=== PATIENT | male | born 1990 | race Caucasian/White ===

== ENCOUNTER 2019-01-31 22:44 | Emergency (ER) | payer BC ==
--- NOTE | 2019-01-31 23:01 | ER Document Report ---
ED Medical Screen (RME) - General Chief Complaint: Ankle Swelling Stated Complaint: LEFT FOOT INJURY Time Seen by Provider: 01/31/19 22:55 Mode of Arrival: Wheelchair Information source: Patient Notes: 28-year-old male presents emergency department with left foot and ankle swelling. Reports he twisted on Tuesday playing soccer. He reports last night at approximately 02 100 he was fixing his chicken coop when he felt something bite or sting his left medial ankle. Since that time the area is red and the foot has swollen up more. He reports he has seen black windows around his area. Denies fever vomiting diarrhea. Unsure of last tetanus. Left foot and ankle swollen foot is warm with erythema I have greeted and performed a rapid initial assessment of this patient. A comprehensive ED assessment and evaluation of the patient, analysis of test results and completion of the medical decision making process will be conducted by additional ED providers. Dictation of this chart was performed using voice recognition software; therefore, there may be some unintended grammatical errors. TRAVEL OUTSIDE OF THE [place] IN LAST 30 DAYS: No - Related Data Allergies/Adverse Reactions: Sulfa (Sulfonamide Antibiotics) Allergy (Verified 01/31/19 22:57) Physical Exam - Vital signs Vitals: Temp Pulse Resp BP Pulse Ox 98.6 F 91 17 142/80 H 97 01/31/19 22:56 01/31/19 22:56 01/31/19 22:56 01/31/19 22:56 01/31/19 22:56 Course - Vital Signs Vital signs: Temp Pulse Resp BP Pulse Ox 98.6 F 91 17 142/80 H 97 01/31/19 22:56 01/31/19 22:56 01/31/19 22:56 01/31/19 22:56 01/31/19 22:56
--- NOTE | 2019-01-31 23:50 | RADIOLOGY REPORT (SQ) ---
3 VIEWS OF LEFT FOOT AND ANKLE EXAM DATE: 01/31/2019 10:59 PM CDT HISTORY: Soccer injury. COMPARISON: None. FINDINGS: The ankle mortise is preserved on these nonstress views. No acute fracture is seen. There is diffuse surrounding soft tissue swelling. No radiopaque foreign body is identified. IMPRESSION: No acute fracture or malalignment. Diffuse soft tissue swelling of the left foot and ankle.
[2019-02-01] MEDS ORDERED: MORPHINE SULFATE 10 MG/ML INJ IV ONE (00:47)
[2019-02-01] MEDS ORDERED: RINGERS SOLUTION,LACTATED 1,000 ML IV ONE (00:47)
--- NOTE | 2019-02-01 00:57 | ER Document Report ---
ED General - General Chief Complaint: Ankle Swelling Stated Complaint: LEFT FOOT INJURY Time Seen by Provider: 01/31/19 22:55 Primary Care Provider: CHARISSE LIN MD [Primary Care Provider] - Follow up as needed Mode of Arrival: Wheelchair TRAVEL OUTSIDE OF THE [place] IN LAST 30 DAYS: No - HPI Notes: 28-year-old male with no pertinent history presents with left lower extremity pain swelling and redness. Patient states that on a couple of days ago he was playing in an adult soccer league when he twisted his ankle and developed some pain in his lateral malleolus and his left posterior lateral forefoot. However, sometime around 3 or 4 in the morning, he was out in his yard in his chicken coop inspecting his chickens. He states at that time, he had been bitten by several mosquitoes in both legs but then felt a sudden sharp pain in his left medial malleolus area. He states he had seen several black widows in the area but did not see anything that bit him. He did not see a snake. He thought he saw two "white spots" but those disappeared. He was fine until around 11 AM, possibly 12 PM when he began to develop swelling pain and redness in his left medial malleolus area. This is now spread and he has some mild calf redness and pain and swelling extending from this area. No fever, chills or sweats. No nausea or vomiting. Moderate intensity, gradual onset, nonradiating. No other modifying factors, no other associated symptoms, no other provocative or palliative factors. - Related Data Allergies/Adverse Reactions: Sulfa (Sulfonamide Antibiotics) Allergy (Verified 01/31/19 22:57) Past Medical History - General Information source: Patient - Social History Smoking Status: Never Smoker Family History: Reviewed & Not Pertinent Patient has suicidal ideation: No Patient has homicidal ideation: No - Medical History Medical History: Negative Review of Systems - Review of Systems Notes: Review of systems as in the history of present illness, otherwise negative x 10 systems. Physical Exam - Vital signs Vitals: Temp Pulse Resp BP Pulse Ox 98.6 F 91 17 142/80 H 97 01/31/19 22:56 01/31/19 22:56 01/31/19 22:56 01/31/19 22:56 01/31/19 22:56 - Notes Notes: General: Well developed . HEENT: Normocephalic, atraumatic. Pupils equal round reactive to light. No JVD. Chest: No trauma. Respiratory: Good air exchange, normal excursion. Cardiac: Regular rhythm. No murmurs or gallops. Abdomen: Soft, benign. Nondistended. Nontender. Back: No asymmetry or gross abnormality. Motor: Grossly normal power and tone. Neurologic: Alert, nonfocal. Cranial nerves II-12 are intact. Sensation intact. Vascular: Well perfused. Normal peripheral pulses. Skin: No petechiae or purpura. Extremities: Both lower extremities show multiple areas of localized erythema with mosquito bites. However, the left ankle is swollen and erythematous, medial greater than lateral, extends up toward his calf. Moderate tenderness and there is warmth. No fluctuance. No obvious envenomation site or bite. Normal neurovascular exam. Course - Re-evaluation Re-evalutation: 02/01/19 00:56 Well-appearing male with the after mentioned symptoms. Plain films were obtained and ordered by physician in triage, these are unremarkable. With regard to the patient's swelling and redness, this does appear to be suspicious for cellulitis. Given the substantial delay between his initial pain and the development of redness and swelling, this would support more of a secondary infection and cellulitis as opposed to a primary reaction such as from bite. However, there is some concern that he did not see what bit him, given th e sudden severe sharp pain in the location (chicken coop), I would be concerned with potential for scrotal lid or other snake. Again, with a delay in merely 12 hours this is somewhat unlikely. However at this time we will proceed with basic laboratory evaluation as well as check PT and fibrinogen, reevaluate. 02/01/19 02:06 Labs reviewed. CBC normal, chemistries unremarkable. Coags are normal. Fibrinogen normal. Total CK is minimally elevated. Patient is done well throughout his ED course. Given his laboratory findings and clinical findings with the absence of any obvious envenomation site, I think this is remarkably unlikely to be a crotalid envenomation. Patient be treated presumptively for secondary cellulitis. Given a dose of Augmentin in the ED, prescription for the same. No history of MRSA or recurrent abscesses. Be given crutches and an ankle splint as well. - Vital Signs Vital signs: Temp Pulse Resp BP Pulse Ox 98.6 F 100 18 141/86 H 100 01/31/19 22:56 02/01/19 00:43 02/01/19 00:43 02/01/19 00:43 02/01/19 00:43 - Laboratory Result Diagrams: 02/01/19 00:53 02/01/19 00:53 Laboratory results interpreted by me: 02/01/19 02/01/19 00:53 00:53 WBC 11.8 H RDW 16.8 H Lymph % (Auto) 12.3 L Absolute Neuts (auto) 8.8 H Creatine Kinase 338 H Discharge - Discharge Clinical Impression: Cellulitis Qualifiers: Site of cellulitis: unspecified site Qualified Code(s): L03.90 - Cellulitis, un specified Ankle sprain Qualifiers: Encounter type: initial encounter Involved ligament of ankle: unspecified ligament Laterality: left Qualified Code(s): S93.402A - Sprain of unspecified ligament of left ankle, initial encounter Condition: Good Disposition: HOME, SELF-CARE Instructions: Sprained Ankle ([facility]), Cellulitis ([facility]) Prescriptions: Amox Tr/Potassium Clavulanate [Augmentin 875-125 Tablet] 1 tab PO BID 7 Days #14 tablet Referrals: CHARISSE LIN MD [Primary Care Provider] - Follow up in 3-5 days
[2019-02-01 01:08] LABS: ABSOLUTE BASOPHILS # (AUTO) 0.1 10^3/uL (0.0-0.2); ABSOLUTE EOSINOPHILS # (AUTO) 0.2 10^3/uL (0.0-0.6); ABSOLUTE LYMPHOCYTES (AUTO) 1.5 10^3/uL (0.5-4.7); ABSOLUTE MONOCYTES (AUTO) 1.4 10^3/uL (0.1-1.4); ABSOLUTE NEUT (AUTO) 8.8 10^3/uL (1.7-8.2); BASOPHILS % (AUTO) 0.5 % (0-2); EOSINOPHILS % (AUTO) 1.4 % (0-6); HEMOGLOBIN 14.3 g/dL (13.5-17.0); LYMPHOCYTES % (AUTO) 12.3 % (13-45); MEAN CORPUSCULAR HEMOGLOBIN 27.7 pg (27.0-33.4); MEAN CORPUSCULAR HGB CONC 33.3 g/dL (32.0-36.0); MEAN CORPUSCULAR VOLUME 83 fl (80-97); MONOCYTES % (AUTO) 11.6 % (3-13); PLATELET COUNT 261 10^3/uL (150-450); RED BLOOD COUNT 5.18 10^6/uL (4.35-5.55); RED CELL DISTRIBUTION WIDTH 16.8 % (11.5-14.0); SEGMENTED NEUTROPHILS % (AUTO) 74.2 % (42-78); TOTAL CELLS COUNTED % (AUTO) 100 %; WHITE BLOOD COUNT 11.8 10^3/uL (4.0-10.5)
[2019-02-01 01:13] LABS: FIBRINOGEN 452 mg/dL (209-497); INTERNATIONAL RATION (INR) 0.95; PROTHROMBIN TIME 12.7 SEC (11.4-15.4)
[2019-02-01 01:23] LABS: ANION GAP 10 (5-19); BLOOD UREA NITROGEN 17 mg/dL (7-20); CALCIUM 9.9 mg/dL (8.4-10.2); CARBON DIOXIDE 23 mmol/L (22-30); CHLORIDE 106 mmol/L (98-107); CREATINE KINASE 338 U/L (55-170); GLUCOSE 86 mg/dL (75-110); POTASSIUM 4.6 mmol/L (3.6-5.0)
[2019-02-01] MEDS ORDERED: AMOXICILLIN TR/POT CLAVULANATE 500-125 MG TAB PO ONE (02:11)
[2019-02-01 03:20] VITALS: BP 106/59
== END 2019-02-01 03:15 | disposition home or self-care (01) ==
LOC: ER 22:44
DX: S93.402A Sprain of unspecified ligament of left ankle, initial encounter (principal); L03.90 Cellulitis, unspecified; M79.89 Other specified soft tissue disorders; M25.572 Pain in left ankle and joints of left foot; X50.1XXA Overexertion from prolonged static or awkward postures, initial encounter; Y93.66 Activity, soccer
CPT/HCPCS: 99283; 96361; 96374; 36415; 82550; 85025; 85384; 85610; 80048; 73610; 73630; L1902; J2270; J7120